=== PATIENT | male | born 1955 | race Two or more races ===

== ENCOUNTER 2023-01-23 09:35 | Emergency (ER) | payer OTHER, BC ==
[~2023-01-23] VITALS: Ht 175.3 cm; Wt 83.0 kg
[2023-01-23] MEDS ORDERED: DICLOFENAC SODI75 MG PO (10:38)
[2023-01-23] MEDS ORDERED: NORFLEX100MG PO (10:38)
== END 2023-01-23 11:06 | disposition home or self-care (01) ==
LOC: ER 09:35
DX: M54.59 Other low back pain (principal)